=== PATIENT | female | born 2000 | race Caucasian/White ===

== ENCOUNTER 2019-03-23 16:04 | Emergency (ER) | payer MEDICAID ==
[~2019-03-23] VITALS: Wt 46.0 kg
[~2019-03-23 16:04] MED LIST: ACET500C5 PO; NITR-58 PO; no home meds
[2019-03-23] MEDS ORDERED: KETOROLAC 30 MG INJ IV STA (16:35)
[2019-03-23] MEDS ORDERED: SOD CHLORIDE 0.9% 1,000 ML IV STA (16:35)
[2019-03-23] MEDS ORDERED: ONDANSETRON 4 MG INJ IV STA (16:35)
[2019-03-23] MEDS ORDERED: ONDA4TAB14 PO (19:40)
[2019-03-23] MEDS ORDERED: ACET500C5 PO (19:40)
[2019-03-23] MEDS ORDERED: NAPR-985 PO (19:40)
[2019-03-23 19:49] VITALS: BP 122/74; PULSE 82; RESP 18
--- NOTE | 2019-03-26 11:30 | ERD ---
ER Documentation Chief Complaint Chief Complaint ap x 3days HPI History of Present Illness: 19-year-old female who denies a past medical history coming in today with complaint of generalized abdominal pain for the past 3 days. Associated symptoms include nausea, decreased appetite, watery stools for the past 3 days. Patient reports that pain is more prominent in the right lower quadrant. Patient is recovering from a rhinoplasty 8 days ago. Patient denies any other associated symptoms. Patient denies sick contacts. At home pharmacological/nonpharmacological treatment for symptoms: Prescription pain medication Denies social concerns; Denies recent foreign travel ROS All systems reviewed and are negative except as per history of present illness. Medications Home Meds Active Scripts Diphenhydramine Hcl* (Benadryl*) 25 Mg Cap, 25 MG PO Q6, #15 CAP Prov:PATRICIO BORJAS MD 03/25/19 Tramadol HCl (Tramadol HCl) 50 Mg Tablet, 50 MG PO Q4 PRN for PAIN, #10 TAB Prov:PATRICIO BORJAS MD 03/25/19 Ondansetron (Ondansetron Odt) 4 Mg Tab.rapdis, 4 MG PO Q6H PRN for NAUSEA AND/OR VOMITING, #10 TAB Prov:SOPHY VARELA NP 03/23/19 Acetaminophen* (Tylophen*) 500 Mg Capsule, 2 CAP PO Q8H PRN for PAIN AND OR ELEVATED TEMP, #20 CAP Prov:SOPHY VARELA NP 03/23/19 Naproxen* (Naprosyn*) 500 Mg Tablet, 500 MG PO BID PRN for PAIN AND/OR INFLAMMATION, #30 TAB Prov:SOPHY VARELA NP 03/23/19 Acetaminophen* (Tylophen*) 500 Mg Capsule, 1 CAP PO Q6H PRN for PAIN AND OR ELEVATED TEMP, #20 CAP Prov:PHI MERCADO NP 02/25/16 Nitrofurantoin Monohyd Macrocr* (Macrobid*) 100 Mg Capsr, 100 MG PO BID for 7 Days, CAP Prov:PHI MERCADO NP 02/25/16 Reported Medications [no home meds] No Conflict Check 03/18/15 Allergies Allergies: Coded Allergies: No Known Allergy (Unverified , 02/24/16) PMhx/Soc History of Surgery: Yes (nose sx) Anesthesia Reaction: No Hx Neurological Disorder: No Hx Respiratory Disorders: No Hx Cardiac Disorders: No Hx Psychiatric Problems: No Hx Miscellaneous Medical Probl: Yes (drug abuse hx since 9yrs of age, SLEEPING PROBLEMS) Hx Alcohol Use: No Hx Substance Use: No Hx Tobacco Use: No FmHx Family History: No diabetes, No coronary disease Physical Exam Vitals Vital Signs Date Temp Pulse Resp B/P (MAP) Pulse Ox O2 O2 Flow FiO2 Time Delivery Rate 03/23/19 98.9 82 18 122/74 98 Room Air 19:49 (90) 03/23/19 99.4 86 18 118/70 99 16:06 (86) Physical Exam Const: No acute distress, appears fatigued Head: Atraumatic Eyes: Normal Conjunctiva ENT: Normal External Ears, Nose and Mouth. Neck: Full range of motion. No meningismus. Resp: Clear to auscultation bilaterally Cardio: Regular rate and rhythm, no murmurs Abd: Soft, generalized tenderness to palpation in all quadrants, more particularly in the right lower quadrant, non distended. Normal bowel sounds Skin: No petechiae or rashes Back: No midline or flank tenderness Ext: No cyanosis, or edema Neur: Awake and alert Psych: Normal Mood and Affect Result Diagram: 03/23/19 1643 03/23/19 1643 Results 24 hrs Laboratory Tests Test 03/23/19 16:43 03/23/19 16:46 White Blood Count 11.5 10^3/ul Red Blood Count 4.07 10^6/ul Hemoglobin 12.5 g/dl Hematocrit 37.5 % Mean Corpuscular Volume 92.1 fl Mean Corpuscular Hemoglobin 30.7 pg Mean Corpuscular Hemoglobin Concent 33.3 g/dl Red Cell Distribution Width 12.0 % Platelet Count 373 10^3/UL Mean Platelet Volume 9.8 fl Immature Granulocytes % 0.400 % Neutrophils % 74.2 % Lymphocytes % 14.6 % Monocytes % 9.4 % Eosinophils % 1.0 % Basophils % 0.4 % Nucleated Red Blood Cells % 0.0 /100WBC Immature Granulocytes # 0.050 10^3/ul Neutrophils # 8.5 10^3/ul Lymphocytes # 1.7 10^3/ul Monocytes # 1.1 10^3/ul Eosinophils # 0.1 10^3/ul Basophils # 0.1 10^3/ul Nucleated Red Blood Cells # 0.0 10^3/ul Urine Color YELLOW Urine Clarity SLIGHTLY CLOUDY Urine pH 7.0 Urine Specific [place] 1.024 Urine Ketones TRACE mg/dL Urine Nitrite NEGATIVE mg/dL Urine Bilirubin NEGATIVE mg/dL Urine Urobilinogen NEGATIVE mg/dL Urine Leukocyte Esterase NEGATIVE Lilly/ul Urine Microscopic RBC 1 /HPF Urine Microscopic WBC 2 /HPF Urine Squamous Epithelial Cells FEW /HPF Urine Mucus FEW /HPF Urine Hemoglobin 1+ mg/dL Urine Glucose NEGATIVE mg/dL Urine Total Protein NEGATIVE mg/dl Sodium Level 140 mmol/L Potassium Level 3.6 mmol/L Chloride Level 104 mmol/L Carbon Dioxide Level 28 mmol/L Anion Gap 8 Blood Urea Nitrogen 5 mg/dl Creatinine 0.52 mg/dl Est Glomerular Filtrat Rate mL/min > 60 mL/min Glucose Level 99 mg/dl Calcium Level 9.4 mg/dl Total Bilirubin 0.2 mg/dl Direct Bilirubin 0.00 mg/dl Indirect Bilirubin 0.2 mg/dl Aspartate Amino Transf (AST/SGOT) 18 IU/L Alanine Aminotransferase (ALT/SGPT) 19 IU/L Alkaline Phosphatase 104 IU/L Total Protein 8.1 g/dl Albumin 4.3 g/dl Globulin 3.80 g/dl Albumin/Globulin Ratio 1.13 Lipase 19 U/L POC Beta HCG, Qualitative NEGATIVE Current Medications Medications Dose Sig/Teena Start Time Status Last (Trade) Ordered Route PRN Stop Time Admin Dose Reason Admin Sodium 1,000 ml @ Q1H STAT 03/23/19 DC 03/23/19 Chloride 1,000 mls/hr IV 16:35 03/23/19 16:51 17:34 Ondansetron 4 mg ONCE STAT 03/23/19 DC 03/23/19 HCl (Zofran IV 16:35 03/23/19 16:51 Inj) 16:37 Ketorolac 30 mg ONCE STAT 03/23/19 DC 03/23/19 Tromethamine IV 16:35 03/23/19 16:51 (Toradol) 16:37 8 mg ONCE ONCE 03/25/19 DC Dexamethasone PO 14:00 (Decadron) 03/25/19 14:01 25 mg ONCE ONCE 03/25/19 DC Diphenhydrami IM 14:00 ne HCl 03/25/19 14:01 (Benadryl) Procedures/MDM ED course includes a thorough examination and history. Medications: Zofran, ketorolac Imaging: Labs: CBC, CMP, urinalysis, urine , LIPASE Patient reassessment at 1805: Patient denies nausea. Patient reports that abdominal pain has decreased. Patient reports feeling better. Patient updated on results of tests including blood work. Source likely a viral etiology especially with the watery stools.. Shared decision-making with patient for CT due to patient being persistent that she feels that something wrong because she is having worsening of her condition and more prominent right lower quadrant pain. Patient verbalizes understanding of risk and benefits of CT. Patient wants to proceed forward with CT to rule out appendicitis or other abdominal etiology. CBC: Mild leukocytosis of, no severe anemia. CMP: no e/o severe acidosis, alkalosis, renal failure, diabetic ketoacidosis, liver disease. The patient's lipase is normal and indicative of no pancreatitis.. Urinalysis negative for infection. Urine negative. Low suspicion for life-threatening medical emergency. Low suspicion for acute abdominal emergency requires hospitalization or immediate surgical intervention. Otherwise healthy patient presenting with constellation of symptoms likely representing acute mesenteric adenitis as characterized by history, physical exam findings, radiology findings, lab findings. CT results showing: IMPRESSION: Prominent lymph nodes in the right abdomen, possibly representing mesenteric adenitis. Normal appendix. Intrauterine device in place. RPTAT: HTAR .Osvaldo Mccauley MD, MD Date Time Electronically viewed and signed by .Osvaldo Mccauley MD, on 03/23/2019 19:17 Patient reassessment 1940: Patient hemodynamically stable. Results discussed. No respiratory distress, otherwise relatively well appearing and nontoxic. Di sposition given. Patient educated on diagnoses, prescriptions, follow-up care, return precautions. Strict return precautions given for worsening condition; questions answered discharge. Disposition for discharge with followup in 2 days with PCP/clinic. Departure Diagnosis: Primary Impression: Acute mesenteric adenitis Condition: Stable Patient Instructions: Adenitis, Mesenteric Referrals: COMMUNITY CLINICS YOU HAVE RECEIVED A MEDICAL SCREENING EXAM AND THE RESULTS INDICATE THAT YOU DO NOT HAVE A CONDITION THAT REQUIRES URGENT TREATMENT IN THE EMERGENCY DEPARTMENT. FURTHER EVALUATION AND TREATMENT OF YOUR CONDITION CAN WAIT UNTIL YOU ARE SEEN IN YOUR DOCTORS OFFICE WITHIN THE NEXT 1-2 DAYS. IT IS YOUR RESPONSIBILITY TO MAKE AN APPOINTMENT FOR FOLOW-UP CARE. IF YOU HAVE A PRIMARY DOCTOR --you should call your primary doctor and schedule an appointment IF YOU DO NOT HAVE A PRIMARY DOCTOR YOU CAN CALL OUR PHYSICIAN REFERRAL HOTLINE AT IF YOU CAN NOT AFFORD TO SEE A PHYSICIAN YOU CAN CHOSE FROM THE FOLLOWING [facility] [address] [facility] [address] [facility] [address] [facility] [address] [facility] [address] [facility]. [facility] [address] [facility]. [facility] YOU HAVE RECEIVED A MEDICAL SCREENING EXAM AND THE RESULTS INDICATE THAT YOU DO NOT HAVE A CONDITION THAT REQUIRES URGENT TREATMENT IN THE EMERGENCY DEPARTMENT. FURTHER EVALUATION AND TREATMENT OF YOUR CONDITION CAN WAIT UNTIL YOU ARE SEEN IN YOUR DOCTORS OFFICE WITHIN THE NEXT 1-2 DAYS. IT IS YOUR RESPONSIBILITY TO M PARMJIT AN APPOINTMENT FOR FOLOW-UP CARE. IF YOU HAVE A PRIMARY DOCTOR --you should call your primary doctor and schedule and appointment IF YOU DO NOT HAVE A PRIMARY DOCTOR YOU CAN CALL OUR PHYSICIAN REFERRAL HOTLINE AT . IF YOU CAN NOT AFFORD TO SEE A PHYSICIAN YOU CAN CHOSE FROM THE FOLLOWING [facility] INSTITUTIONS: [facility] [address] [place] [address] [facility] [address] [place] [address] [facility] [address] [place] [address] Additional Instructions: Thank you very much for allowing us to participate in your care. Your health and safety is our top priority at [facility]. It is important to read all discharge instructions and education provided in your discharge packet. *It is very important to stay hydrated. Plenty of fluids including electrolyte water and Gatorade.* Call your primary care doctor TOMORROW for an appointment during the next 2-4 days and bring all the information and medications prescribed. Have prescriptions filled and follow precisely the directions on the label. -Naproxen is a anti-inflammatory/pain medication; take this medication daily as prescribed for the next week to help with swelling/inflammation/pain. --Acetaminophen as a medication for pain and/or fever. Take this medication as needed for mild to moderate pain. This medication will not cause drowsiness. If the symptoms get worse and your provider is unavailable, return to the Emergency Department immediately. SOPHY VARELA NP March 26, 2019 11:30
== END 2019-03-23 19:50 | disposition home or self-care (01) ==
LOC: FTE 16:04
DX: I88.0 Nonspecific mesenteric lymphadenitis (principal)
CPT/HCPCS: 36415; 74176; 80053; 81001; 81025; 83690; 85025; 96361; 96374; 96375; J1885; J2405; J7030; Z7502

== ENCOUNTER 2019-03-24 01:51 | Emergency (ER) | payer SELFPAY ==
[~2019-03-24] VITALS: Ht 154.9 cm; Wt 45.4 kg
[~2019-03-24 01:51] MED LIST changes: +NAPR-985 PO; +ONDA4TAB14 PO
[2019-03-24 02:01] VITALS: BP 146/65; PULSE 92; RESP 18; Ht 154.9 cm; Wt 45.4 kg
[2019-03-25] MEDS ORDERED: TRAM50TA2 PO (14:13)
[2019-03-25] MEDS ORDERED: BEN25 PO (14:19)
== END 2019-03-24 04:21 | disposition left against medical advice (07) ==
LOC: FTE 01:51
DX: Z53.21 Procedure and treatment not carried out due to patient leaving prior to being seen by health care provider (principal)

== ENCOUNTER 2019-03-25 13:23 | Emergency (ER) | payer MEDICAID ==
[~2019-03-25] VITALS: Ht 154.9 cm; Wt 44.9 kg
[2019-03-25 13:25] VITALS: Ht 154.9 cm; Wt 44.9 kg
[2019-03-25] MEDS ORDERED: DEXAMETHASONE 4 MG TAB PO ONE (14:00)
[2019-03-25] MEDS ORDERED: DIPHENHYDRAMINE 50 MG INJ IM ONE (14:00)
[2019-03-25] MEDS ORDERED: TRAM50TA2 PO (14:13)
--- NOTE | 2019-03-25 14:16 | ERD ---
ER Documentation Chief Complaint Chief Complaint ALLERGIC REACTIO TO MEDICATION - RASHES HPI 18-year-old female presents with rashes on extremities for the last 1 to 2 days. She was seen here 2 days ago for abdominal pain. She had CT which showed signs of mesenteric adenitis. She is having intermittent crampy abdominal pain. She is taking Tylenol and Naprosyn as well as Zofran. She is having no nausea and rarely takes the Zofran. She denies any previous history of allergies to medications. She states that she has taken ibuprofen in the past. Previous visit shows minimal leukocytosis. She has history of methamphetamine abuse according to medical record with admission for acute toxicity and encephalopathy. She has some swelling of the lips and she did show a picture which shows is mild swelling of the lower lips. The lip swelling is currently resolved. ROS All systems reviewed and are negative except as per history of present illness. Medications Home Meds Active Scripts Diphenhydramine Hcl* (Benadryl*) 25 Mg Cap, 25 MG PO Q6, #15 CAP Prov:PATRICIO BORJAS MD 03/25/19 Tramadol HCl (Tramadol HCl) 50 Mg Tablet, 50 MG PO Q4 PRN for PAIN, #10 TAB Prov:PATRICIO BORJAS MD 03/25/19 Ondansetron (Ondansetron Odt) 4 Mg Tab.rapdis, 4 MG PO Q6H PRN for NAUSEA AND/OR VOMITING, #10 TAB Prov:SOPHY VARELA NP 03/23/19 Acetaminophen* (Tylophen*) 500 Mg Capsule, 2 CAP PO Q8H PRN for PAIN AND OR ELEVATED TEMP, #20 CAP Prov:SOPHY VARELA NP 03/23/19 Naproxen* (Naprosyn*) 500 Mg Tablet, 500 MG PO BID PRN for PAIN AND/OR INFLAMMATION, #30 TAB Prov:SOPHY VARELA NP 03/23/19 Acetaminophen* (Tylophen*) 500 Mg Capsule, 1 CAP PO Q6H PRN for PAIN AND OR ELEVATED TEMP, #20 CAP Prov:PHI MERCADO NP 02/25/16 Nitrofurantoin Monohyd Macrocr* (Macrobid*) 100 Mg Capsr, 100 MG PO BID for 7 Days, CAP Prov:PHI MERCADO NP 02/25/16 Reported Medications [no home meds] No Conflict Check 03/18/15 Allergies Allergies: Coded Allergies: No Known Allergy (Unverified , 02/24/16) PMhx/Soc History of Surgery: Yes (nose sx) Anesthesia Reaction: No Hx Neurological Disorder: No Hx Respiratory Disorders: No Hx Cardiac Disorders: No Hx Psychiatric Problems: No Hx Miscellaneous Medical Probl: Yes (drug abuse hx since 9yrs of age, SLEEPING PROBLEMS) Hx Alcohol Use: No Hx Substance Use: No Hx Tobacco Use: No FmHx Family History: No diabetes, No coronary disease, No other Physical Exam Vitals Vital Signs Date Temp Pulse Resp B/P (MAP) Pulse Ox O2 O2 Flow FiO2 Time Delivery Rate 03/25/19 98.4 80 19 125/69 98 13:25 (87) Physical Exam Const: No acute distress Head: Atraumatic Eyes: Normal Conjunctiva ENT: Normal External Ears, Nose and Mouth. Neck: Full range of motion. No meningismus. Resp: Clear to auscultation bilaterally Cardio: Regular rate and rhythm, no murmurs Abd: Soft, tenderness primarily in the suprapubic area. No tenderness at McBurney's point no Villalobos sign. No rebound. Non distended. Normal bowel sounds Skin: No petechiae or purpura. Scattered minimal blanching wheal type lesions. These are on the wrists and forearms. Back: No midline or flank tenderness Ext: No cyanosis, or edema Neur: Awake and alert Psych: Normal Mood and Affect Results 24 hrs Current Medications Medications Dose Sig/Teena Start Time Status Last (Trade) Ordered Route PRN Stop Time Admin Dose Reason Admin 8 mg ONCE ONCE 03/25/19 DC 03/25/19 Dexamethasone PO 14:00 14:12 (Decadron) 03/25/19 14:01 25 mg ONCE ONCE 03/25/19 DC 03/25/19 Diphenhydrami IM 14:00 14:08 ne HCl 03/25/19 14:01 (Benadryl) Procedures/MDM Signs and symptoms of possible allergic reaction most likely to Naprosyn. She has no signs of anaphylaxis, airway obstruction, purpura or life-threatening rashes, hypoxemia, wheezing. Patient is given Decadron 8 mg by mouth and Benadryl 25 IM. We will treat with Benadryl, tramadol for pain with return precautions in the next day for fevers, vomiting, worsening pain, blood, new or worsening symptoms with primary doctor. The patient was stable with no new complaints during the ER course. Clinically, there is no current evidence to suggest meningitis, sepsis, acute abdomen, pneumonia, stroke, acute coronary syndrome, pulmonary embolism, aortic dissection or any other emergent condition appearing to require further evaluation or hospitalization. Patient counseled regarding my diagnostic impression and care plan. Prior to discharge all questions answered. Pt agrees with treatment plan and understands strict return precautions. Pt is instructed to follow up with primary care provider within 24- 48 hours. Precautionary instructions provided including instructions to return to the ER if not improving or for any worsening or changing symptoms or concerns. Disclaimer: Inadvertent spelling and grammatical errors are likely due to EHR/dictation software use and do not reflect on the overall quality of patient care. Also, please note that the electronic time recorded on this note does not necessarily reflect the actual time of the patient encounter. Departure Diagnosis: Primary Impression: Abdominal pain Abdominal location: unspecified location Qualified Codes: R10.9 - Unspecified abdominal pain Additional Impression: Allergic reaction Encounter type: initial encounter Qualified Codes: T78.40XA - Allergy, unspecified, initial encounter Condition: Stable Patient Instructions: Abdominal Pain, Unknown Cause, (Female), Allergic Reaction, Drug Referrals: DOCTOR,NOT ON STAFF (PCP) Additional Instructions: Naprosyn most common cause of allergic reaction. Recommend Tylenol for mild pain. Okay to take tramadol for more severe pain. Drink plenty of fluids. Recheck for vomiting, fevers, worsening pain, new or worsening symptoms next day otherwise. PATRICIO BORJAS MD March 25, 2019 14:16
[2019-03-25] MEDS ORDERED: BEN25 PO (14:19)
[2019-03-25 14:37] VITALS: BP 119/74; PULSE 68; RESP 18
== END 2019-03-25 14:38 | disposition home or self-care (01) ==
LOC: FTE 13:23
DX: R10.9 Unspecified abdominal pain (principal)
CPT/HCPCS: 96372; J1200; Z7502; Z7610